=== PATIENT | male | born 1955 | race Caucasian/White ===

== ENCOUNTER → 2016-10-20 07:17 | Outpatient (CLI) | payer MEDICARE ==
[~2016-10-20] VITALS: Ht 175.3 cm; Wt 81.8 kg
--- NOTE | ~2016-10-20 | HEMODYNAMI ---
PATIENT:GORGE MA JR MEDICAL RECORD: [id number] : 51 LOCATION:[facility] ADMISSION DATE: 10/20/16 Generatedon:10/20/20169:44 Patient name: GORGE MA Patient #: [id number] SSN: DO B: 1955 Date of study: 10/20/2016 Page: Of Hemodynamic Procedure Report Patient Data Patient Demographics Procedure consent was obtained First Name: GORGE Gender: Male Last Name: FRANCESCA Suffix: Jr [place] Initial: Maggy : 1955 Patient #: [id number] Age: 61 year(s) Race: Additional ID: [id number] Contact details Address: [facility] [address] State: [facility] Zip code: [address] Past Medical History Allergies Allergen Reaction Date Comments Reported Morphine 10/20/2016 Natural rubber 10/20/2016 and latex Chocolate 10/20/2016 Admission Admission Data Admission Date: 10/20/2016 Admission Time: 7:17 Height (in.): 69 BSA: 1.98 (m2) Height (cm.): 175.26 BMI: 26.58 (kg/m2) Weight (lbs.): 180 Weight (kg.): 81.65 Lab Results Lab Result Date: 10/20/2016 Lab Result Time: 0:00 Biochemistry Name Units Result Min Max Creatinine mg/dl 0.7 --(*---)-- 0.6 1.3 CBC Name Units Result Min Max Hemoglobin g/dl 15.5 --(-*--)-- 13.5 17.5 Procedure Procedure Types Cath Procedure Diagnostic Procedure C [facility] w/Coronaries PCI Procedure Coronary Stent Initial Miscellaneous Procedures Moderate Sedation up to 30 minutes Procedure Description Procedure Date Procedure Date: 10/20/2016 Procedure Start Time: 9:20 Procedure End Time: 9:43 Procedure Staff Name Function Luther Barrow MD Performing Physician Sofya Melendez RT Scrub Kelsie Ma RN Nurse Nura Ndiaye RT Monitor Procedure Data Cath Procedure Fluoroscopy Diagnostic fluoroscopy Total fluoroscopy Time: 4.4 time: 4.4 min min Diagnostic fluoroscopy Total fluoroscopy dose: 660 dose: 660 mGy mGy Contrast Material Contrast Material Type Amount (ml) Isovue 300 128 Entry Location Entry Primary Successful Side Size Upsize Upsize Entry Closure Succes sful Closure Location (Fr) 1 (Fr) 2 (Fr) Remarks Device Remarks Femoral Right 5 Fr 6 Fr Exoseal artery Short Estimated blood loss: 10 ml Diagnostic catheters Device Type Used For End Catheter Placement Cordis 5Fr JL 4.0 Procedure Catheter (MP) Cordis 5Fr 3DRC Catheter Procedure (MP) Cordis 5Fr Pigtail Procedure Catheter (MP) Cordis 5Fr 3DRC Catheter Procedure (MP) Procedure Complications No complications Procedure Medications Medication Administration Route Dosage Fentanyl I.V. 50 mcg Versed I.V. 1 mg Versed I.V. 1 mg Fentanyl I.V. 50 mcg Versed I.V. 1 mg Fentanyl I.V. 50 mcg Oxygen NC 2 l/min Heparin Flush Bag added to field 2 bags (1000units/500ml NS) Lidocaine 2% added to field 20 Heparin Bolus I.V. 4000 units Integrilin (Bolus I.V. 7.3 ml 2mg/ml) Nitroglycerin IC/IA I.C. 150 mcg Plavix P.O. 600 mg Hemodynamics Rest BSA: 1.98 (m2) HGB: 15.5 (g/dl) O2 Consumption: Estimated: 228.01 (ml/min) O2 Co nsumption indexed: Estimated:115.16 (ml/min/m) Heart Rate: 65 (bpm) Pressure Samples Time Site Value (mmHg) Purpose Heart Use Rate(bpm) 9:23 AO 128/76(98) Snapshot 76 9:27 LV 132/14,21 Snapshot 81 9:27 AO 131/71(97) Pullback 81 9:27 LV 138/2,33 Pullback 81 9:31 AO 114/65(87) Snapshot 79 Gradients Valve Time Site 1 Site 2 Mean SEP/DFP Peak To Heart Use (mmHg) (sec/min) Peak Rate (mmHg) (bpm) Aortic 9:27 LV AO 12 25 7 81 138/2,33 131/71(97) Calculations Valve P-P Mean Valve Index Valve Source Name Gradient Area Flow (cm2) Aortic 7 12 7 12 Snapshots Pre Cath Intra NCS Post Cath Vital Signs Time Heart Resp SPO2 etCO2 [id number] NIBP (mmHg) Rhythm Pain Status Sed ation Rate (ipm) (%) (mmHg) (mmHg) Level (bpm) 8:48:28 68 14 100 0 0 158/75(85) NSR 4 (11) , 10( A) Distressing 8:52:46 67 20 100 0 0 138/93(105) NSR 4 (11) , 10( A) Distressing 8:56:58 69 15 100 0 0 142/89(129) NSR 2 (11) , 10( A) Uncomfortable 9:01:14 75 17 100 0 0 142/84(120) NSR 0 (11) , No 10( A) pain 9:05:30 65 19 99 0 0 140/83(117) NSR 0 (11) , No 10( A) pain 9:09:44 65 17 98 0 0 136/88(120) NSR 0 (11) , No 10( A) pain 9:13:56 74 16 98 0 0 140/86(105) NSR 0 (11) , No 10( A) pain 9:18:14 71 18 95 0 0 122/77(90) NSR 0 (11) , No 9(A ) pain 9:22:24 76 18 96 0 0 125/80(92) NSR 0 (11) , No 9(A ) pain 9:26:36 78 16 96 0 0 114/73(87) NSR 0 (11) , No 9(A ) pain 9:30:43 79 16 94 0 0 111/74(91) NSR 0 (11) , No 9(A ) pain 9:34:49 82 16 98 0 0 120/75(92) NSR 0 (11) , No 9(A ) pain 9:38:55 83 16 96 0 0 126/84(103) NSR 0 (11) , No 10( A) pain 9:40:44 82 16 97 0 0 123/81(96) NSR 0 (11) , No 10( A) pain Medications Time Medication Route Dose Verified Delivered Reason Notes Effectiveness by by 8:51:26 Oxygen NC 2 Luther Iglesias Per physician l/min [facility] Ma RN, MD 8:52:01 Lidocaine 2% added 20ml Luther Luther used for to vial Ismay Ismay procedure field MD GARCIA 8:52:45 Heparin Flush added 2 Luther Luther used for Bag to bags [facility] procedure (1000units/500ml field MD GARCIA NS) 8:54:25 Fentanyl I.V. 50 Luther Kelsie for back pain mcg [facility]se[facility] Ma RN, MD 9:12:25 Versed I.V. 1 mg Luther Kelsie for sedation [facility] Ma RN, MD 9:14:31 Fentanyl I.V. 50 Luther Kelsie for sedation mcg [facility] Ma RN, MD 9:14:33 Versed I.V. 1 mg Luther Kelsie for sedation [facility] Ma RN, MD 9:16:34 Versed I.V. 1 mg Luther Kelsie for sedation [facility] Ma RN, MD 9:16:39 Fentanyl I.V. 50 Luther Kelsie for sedation mcg [facility] Ma RN, MD 9:29:49 Heparin Bolus I.V. 4000 Luther Kelsie for dose units [facility] Ma RN anticoagulation verified MD with dr denis 9:33:10 Integrilin I.V. 7.3 Luther Kelsie for wasted (Bolus 2mg/ml) ml [facility] Ma RN antiplatelet 2.7mL MD therapy 9:36:42 Nitroglycerin I.C. 150 Luther Luther for IC/IA mcg Pushpa [facility] roy MD, MD 9:39:45 Plavix P.O. 600 Luther Kelsie for mg [facility] Ma RN antiplatelet therapy Procedure Log Time Note 8:24:40 Lab Result : Creatinine 0.7 mg/dl 8:24:40 Lab Result : Hemoglobin 15.5 g/dl 8:25:04 Time tracking: Regular hours 8:25:08 Plan of Care:Hemodynamics will remain stable., Cardiac rhythm will remain stable., Comfort level will be maintained., Respiratory function will remain adequate., Patient/ family verbilizes understanding of procedure., Procedure tolerated without complication., Recovers from procedure without complications.. 8:30:22 Nura ESTEBAN(R) sent for patient. Start room use. 8:47:15 Vital chart was started 8:50:47 Patient received from Pre/Post Procedure Room to CCL 1 Alert and oriented. Tansferred to table in Supine position. 8:50:49 Warm blankets applied, and teddy hugger turned on for patient comfort. 8:50:50 Correct patient and procedure confirmed by team. 8:50:51 Signed procedure consent form obtained from patient. 8:50:52 ECG and BP/O2 sat monitors applied to patient. 8:50:54 Full Disclosure recording started 8:51:01 Baseline sample Acquired. 8:51:26 Oxygen 2 l/min NC was administered by Kelsie Ma RN; Per physician; 8:52:01 Lidocaine 2% 20ml vial added to field was administered by Luther Barrow MD; used for procedure; 8:52:45 Heparin Flush Bag (1000units/500ml NS) 2 bags added to field was administered by Luther Barrow MD; used for procedure; 8:52:59 Baseline sample Acquired. 8:54:25 Fentanyl 50 mcg I.V. was administered by Kelsie Ma RN; for back pain; 8:55:40 Rhythm: sinus rhythm 8:56:10 H&P Date Dictated: 10/20/2016 New H&P dictated by physician.. 8:56:11 Pre-procedure instructions explained to patient. 8:56:12 Pre-op teaching completed and patient verbalized understanding. 8:56:15 Family in patients room. 8:56:17 Patient NPO since Midnight. 8:56:29 Is the patient allergic to Iodine/contrast media? No. 8:56:33 Is patient on blood thinner?No 8:56:36 Patient diabetic? No. 8:56:39 Previous problem with sedation/anesthesia? No ? 8:56:40 Snore? No 8:56:42 Sleep apnea? No 8:56:43 Deviated septum? No 8:56:44 Opens mouth fully? Yes 8:56:44 Sticks out tongue? Yes 8:56:46 Airway obstruction? No ? 8:56:49 Dentures? No ? 8:56:53 Pre procedure: right dorsailis pedis pulse 1+ Palpable, but thready & weak; easily obliterated 8:56:56 Modified Johnathan's test Ulnar > 7 seconds. 8:57:05 FAILED JOHNATHAN'S 8:57:09 Patient pain scale 0/10 ?. 8:57:14 IV patent on arrival in left forearm with 0.9% NaCl at [facility]. 8:57:17 Lab results completed and on chart. 8:57:21 Right groin area was prepped with chlora-prep and draped in sterile fashion 8:57:23 Alarms reviewed by R. N. 8:57:23 Sharps counted by scrub and verified by R.N. 8:58:38 Use device set Femoral Dx 9:01:17 Tegaderm 4 x 4 opened to sterile field. 9:01:18 Acist Hand Control opened to sterile field. 9:01:18 Acist Manifold opened to sterile field. 9:01:20 Acist Syringe opened to sterile field. 9:01:20 Bag Decanter opened to sterile field. 9:01:21 Medline Cath Pack opened to sterile field. 9:01:21 Terumo 5Fr Hemphill Sheath opened to sterile field. 9:01:22 St [place] 260cm J .035 wire opened to sterile field. 9:01:23 Diagnostic Infinity 5Fr Multipack catheter opened to sterile field. 9:02:00 Physician paged 9:03:52 Zero performed for pressure channel P1 9:06:21 Patient Height : 69 cm 9:06:22 Patient Weight : 180 kg 9:09:17 Patient allergic to Morphine 9:09:22 Patient allergic to Natural rubber and latex 9:09:27 Patient allergic to Chocolate 9:11:40 --------ALL STOP TIME OUT------ 9:11:41 Final Timeout: patient, procedure, and site verified with staff and physician. All members of the team are in agreement. 9:11:46 Right groin site verified by team. 9:11:49 Physical assessment completed. ASA score P 2 - A patient with mild systemic disease as per Luther Barrow MD. 9:11:52 Sedation plan: IV Moderate Sedation Versed, Fentanyl 9:12:25 Versed 1 mg I.V. was administered by Kelsie Ma RN; for sedation; 9:14:31 Fentanyl 50 mcg I.V. was administered by Kelsie Ma RN; for sedation; 9:14:33 Versed 1 mg I.V. was administered by Kelsie Ma RN; for sedation; 9:16:34 Versed 1 mg I.V. was administered by Kelsie Ma RN; for sedation; 9:16:39 Fentanyl 50 mcg I.V. was administered by Kelsie Ma RN; for sedation; 9::41 Procedure started. 9:20:45 Local anesthetic to right femoral artery with Lidocaine 2% by Luther Barrow MD.INITIAL ACCESS ONLY 9:21:31 A 5 Fr sheath was inserted into the Right Femoral artery 9:22:07 A Cordis 5Fr JL 4.0 Catheter (MP) was advanced over the wire and used for Procedure. 9:23:06 LCA angiography performed. 9:23:46 Catheter removed. 9:23:51 A Cordis 5Fr 3DRC Catheter (MP) was advanced over the wire and used for Procedure. 9:25:08 RCA angiography performed. 9:25:38 Catheter removed. 9:26:01 A Cordis 5Fr Pigtail Catheter (MP) was advanced over the wire and used for Procedure. 9:27:35 Terumo 6Fr Hemphill Sheath opened to sterile field. 9:27:36 [employer] [place] 300cm 0.014 guide wire opened to sterile field. 9:27:36 Info Assembly BasixCompak Inflation Kit opened to sterile field. 9:27:37 Cordis 6FR XBLAD 3.5 guide catheter opened to sterile field. 9:27:39 LV angiography performed. 9:27:41 LV gram done using GR 9:27:47 EF : 55 % 9:27:50 LV hemodynamics recorded. 9:27:55 Injector settings: Ml/sec: 10, Volume: 20, 9:27:57 Catheter removed. 9:28:36 Sheath upsized to a 6 Fr Short. 9:28:41 ACC PCI Site: mLAD has 80% stenosis. 9:28:43 ACC Pre-intervention MONIQUE Flow is 3. 9:29:49 Heparin Bolus 4000 units I.V. was administered by Kelsie Ma RN; for anticoagulation; dose verified with dr denis 9:29:56 6 Fr XBLAD 3.5 guide catheter was inserted over the wire 9:31:12 [place] wire advanced. 9:32:50 Wire advanced across lesion. 9:33:10 Integrilin (Bolus 2mg/ml) 7.3 ml I.V. was administered by Kelsie Ma RN; for antiplatelet therapy; wasted 2.7mL 9:33:49 Inflation Number: 1 A Medtronic Integrity 3.0 X 15 stent was prepped and advanced across the Mid LAD. The stent was deployed at 14 NATHANIEL for 0:45 (min:sec). 9:34:58 ACC Post-intervention MONIQUE Flow is 3. 9:35:01 Stent catheter was removed intact over wire. 9:35:01 Wire removed. 9:35:02 Guide catheter removed. 9:35:11 A Cordis 5Fr 3DRC Catheter (MP) was advanced over the wire and used for Procedure. 9:36:42 Nitroglycerin IC/IA 150 mcg I.C. was administered by Luther Barrow MD; for vasodilation; 9:37:29 Catheter removed. 9:37:42 Cordis 6Fr Exoseal opened to sterile field. 9:37:54 Sheath removed intact; hemostasis achieved with Exoseal to the Right Femoral artery. 9:37:58 Procedure ended.(Physican Out) 9:38:23 Fluoroscopy time 04.40 minutes. 9:38:28 Flurop Dose total: 660 9:38:28 Fluoroscopy dose: 660 mGy 9:38:33 Contrast amount:Isovue 300 128ml. 9:38:35 Sharps counted by scrub and verified by R.N. 9:38:37 Insertion/operative site no bleeding no hematoma. 9:39:05 Post-op/insertion site Right Femoral artery dressed using a 4 x 4 and Tegaderm. 9:39:07 Post Procedure Pulses reassessed and unchanged 9:39:09 Post-procedure physical assessment completed. ASA score P 2 - A patient with mild systemic disease as per Luther Barrow MD. 9:39:12 Post procedure rhythm: unchanged. 9:39:15 Estimated blood loss: 10 ml 9:39:17 Post procedure instruction explained to patient.Patient verbalizes understanding. 9:39:18 Patient needs reinforcement of post procedure teaching. 9:39:37 Procedure type changed to Cath procedure, Diagnostic procedure, LHC, LHC w/Coronaries, PCI procedure, Coronary Stent Initial, Miscellaneous Procedures, Moderate Sedation up to 30 minutes 9:39:41 Procedure Complication : No complications 9:39:45 Plavix 600 mg P.O. was administered by Kelsie Ma RN; for antiplatelet therapy; 9:40:05 Procedure and supply charges have been captured, reviewed, submitted and are correct. 9:42:56 Vital chart was stopped 9:42:57 See physician's report for complete and final results. 9:42:59 Report given to Pre/Post Procedure Room. 9:43:18 Patient transfered to PCU with Stretcher. 9:43:22 Procedure ended. 9:43:22 Full Disclosure recording stopped 9:43:33 End room use (Document Last) Intervention Summary Intervention Notes Time ActionType Lesion and Equipment Action# Pressure Duration Attributes Used 9:33:49 Place stent Mid LAD Medtronic 1 14 00:45 Integrity 3.0 X 15 stent Device Usage Item Name Manufacture Quantity Catalog Hospital Part Current Minimal Lot# / Number Charge Number Stock Stock Serial# Code Tegaderm 4 3M 1 1626W 212534 179075 989341 5 x 4 Acist Hand Acist 1 64369 341531 203183 016014 5 Control Medical Systems ReGen Biologics Acist Acist 1 24744 916906 414586 736681 5 Manifold Medical Systems Inc Acist Acist 1 51070 074787 993992 768468 20 Syringe Medical Systems Inc Bag Microtek 1 2002S 752513 75093 275215 5 Dec[employer]zun [employer] Medical Inc. Medline Cardinal 1 [id number] 256008 79981 426752 5 Cath Pack Health Terumo 5Fr Terumo 1 [id number] 726033 912630 257746 [address] [place] 1 542180 148031 808551 994936 30 260cm J .035 wire Diagnostic Cardinal 1 [id number] 184026 35009 815721 30 Infinity Health 5Fr Multipack catheter Cordis 5Fr Cardinal 1 874990 5 JL 4.0 Health Catheter (MP) Cordis 5Fr Cardinal 1 903337 5 3DRC Health Catheter (MP) Cordis 5Fr Cardinal 1 827401 5 Pigtail Health Catheter (MP) Terumo 6Fr Terumo 1 [id number] 676006 899665 082415 40 Hemphill Sheath Schreiber Schreiber 1 [id number] 025146 265413 314997 1 [place] Vascular 300cm 0.014 guide wire Merit Merit 1 [id number] 965358 218845 520928 15 [employer] Medical Inflation Kit Cordis 6FR Cardinal 1 [id number] 277535 222647 846438 10 XBLAD 3.5 Health guide catheter Medtronic Medtronic 1 [id number] 348286 093104 8 [id number] Integrity 3.0 X 15 stent Cordis 6Fr Cardinal 1 [id number] 264968 556546 424039 10 OR Productivity Signature Audit [place] Stage Time Signature Unsigned Intra-Procedure 10/20/2016 Nura Ndiaye 9:44:00 AM RT(R) Signatures Monitor : Nura Ndiaye RT Signature : Date : Time : [address] [id number]
[~2016-10-20 07:17] MED LIST: ALTACE10 MG PO; AMBIEN10 MG PO; BAYER CHEWABLE81 MG PO; HYDROCHLOROTH12.5 M1 PO; HYDROCODONE-APA1 TAB PO; LEVOTHYROXINE50 MCG PO; LODINE400 MG PO; PLAVIX75 MG PO; TENORMIN50 MG PO; ULTRAM50 MG PO
[2016-10-20 07:46] LABS: BASOPHILS 0.5 % (0-2); EOSINOPHILS 1.8 % (0-7); HEMATOCRIT 41.1 % (42.0-54.0); HEMOGLOBIN 15.5 g/dL (13.5-17.5); IMMATURE GRANULOCYTES 0.3 % (0-5); LYMPHOCYTES 33.3 % (15-50); MCH 33.3 pg (26.0-34.0); MCHC 37.7 g/dL (31.0-37.0); MCV 88.4 fL (80.0-100.0); MEAN PLATELET VOLUME 9.4 fL (7.4-10.4); MONOCYTES 11.3 % (2-11); NEUTROPHILS 52.8 % (40-80); PLATELET COUNT 206 10x3/uL (130-400); RBC 4.65 10x6/uL (4.20-6.10); RDW 11.9 % (11.5-14.5)
[2016-10-20 07:55] VITALS: BP 155/84; Ht 175.3 cm; Wt 81.8 kg
[2016-10-20 08:12] LABS: CALC OSMOLALITY 249 mosm/kg (275-300); CALCIUM 8.6 mg/dL (8.5-10.1); CARBON DIOXIDE 25.1 mmol/L (21.0-32.0); CHLORIDE - SERUM 89 mmol/L (98-107); CREATININE - SERUM 0.7 mg/dL (0.6-1.3); GLUCOSE 91 mg/dL (74-106); POTASSIUM - SERUM 3.4 mmol/L (3.5-5.1); SODIUM 125 mmol/L (136-145); UREA NITROGEN 6 mg/dL (7-18); eGFR NON AFRICAN AMERICAN > 90 mL/min (90-120)
--- NOTE | 2016-10-20 09:50 | NUR ---
RECIEVED BACK TO ROOM VIA STRETCHER FROM RESPIRATORY SUPERVISOR WITH 6 FR EXOSEAL R/GROIN CDI NO BLEEDING NO HEMATOMA NOTED. VSS WITH CHEST PAIN DENIED. INSTRUCTED PATIENT TO KEEP HEAD FLAT ON PILLOW WITH RLE STRAIGHT. 1000 PATIENT REQUEST URINAL NEEDS PROVIDED. PATIENT REQUEST JUICE TO DRINK ON ARRIVAL WITH JUICE FOUND PATIENT SITTING UP IN BED USING URINAL. INSTRUCTED PATIENT TO LAY DOWN WITH DRESSING TO R/GROIN INTACT SMALL AMOUNT OF BLOOD NOTED TO DRESSING NOTIFIED RESPIRATORY SUPERVISOR WITH AAMIR TO CHECK GROIN NO SWELLING OR HEMATOMA AT THIS TIME WILL MONITOR
--- NOTE | 2016-10-20 10:45 | NUR ---
R/GROIN CONTINUES TO BLEED WITH DRESSING SATURATED. FEMSTOP APPLIED WITH PULSES MARKED
--- NOTE | 2016-10-20 11:15 | NUR ---
1115 VSS WITH CHEST PAIN DENIED FEMSTOP REMAINS TO R/GROIN WITH PULSES MARKED FAMILY AT SIDE 1145 PATIENT VOIDS 600 CC TO URINAL. VSS WITH FEMSTOP IN PLACE
--- NOTE | 2016-10-20 12:25 | NUR ---
1215 PT HAS VOIDED 500 CC CLEAR YELLOW URINE USING URINAL. FEMSTOP IN PLACE, NO BLEEDING OR HEMATOMA NOTED, PT DENIES ANY C/O AT THIS TIME. FAMILY AT BEDSIDE.
--- NOTE | 2016-10-20 12:43 | NUR ---
RESTING QUIELTY WITH EYES CLOSED VSS WITH NO DISTRESS NOTED. FEMSTOP REMAINS IN PLACE WITH PULSES PRESENT
--- NOTE | 2016-10-20 13:00 | NUR ---
PRESSURE RELEASED SLOWLY FROM FEMSTOP WITH NO BLEEDING NO HEMATOMA NOTED. WILL MONITOR VSS
--- NOTE | 2016-10-20 13:13 | NUR ---
R/GROIN REMAINS CDI NO BLEEDING NO HEMATOMA. FEMSTOP REMAINS IN PLACE WITH NO PRESSURE TO SITE. CHEST PAIN DENIED WITH VSS WILL MONITOR
--- NOTE | 2016-10-20 13:55 | NUR ---
PIV REMOVED WITH DRESSING APPLIED. R/GROIN CDI NO BLEEDING NO HEMATOMA NOTED. PATIENT UP TO GET DRESSED FOR DISCHARGE HOME WITH
--- NOTE | 2016-10-20 14:22 | NUR ---
VERBAL AND WRITTEN DISCHARGE GONE OVER WITH PATIENT AND BOTH VERBALIZED UNDERSTANDING. R/GROIN REMAINS CDI WITH CHEST PAIN DENID. LEFT VIA WC TO PARKING FOR DISCHARGE HOME
--- NOTE | 2016-10-21 14:39 | HP ---
PATIENT: GORGE MA JR MEDICAL RECORD: [id number] ACCOUNT: [id number] LOCATION:[facility] : 51 ADMISSION DATE: 10/20/16 HISTORY AND PHYSICAL EXAMINATION HISTORY OF PRESENT ILLNESS: A 61-year-old gentleman, no known history of coronary artery disease. He has a history of hypertension, hypothyroidism on replacement, seen in the office for progressive angina, had positive pharmacological protocol Cardiolite stress test. He is noted to have reversible ischemia. He is being brought to the lab for diagnostic and neurology intervention based on above. PAST MEDICAL HISTORY: Includes: 1. History of rheumatoid arthritis. 2. Hyperlipidemia. 3. Hypertension. 4. Progressive angina. ALLERGIES: CHOCOLATE AND MORPHINE. MEDICATIONS: Include, atenolol 50 every day, HCTZ 12.5 every day, [place] 10/325 two as needed, Synthroid 50 every day, prednisone 5 every day. PHYSICAL EXAMINATION: GENERAL: Pleasant gentleman in no acute distress. Mild changes of RA in the upper extremities. HEENT: Normocephalic, atraumatic. NECK: No bruits. HEART: Regular. LUNGS: Engle clear. ABDOMEN: Soft, nontender. EXTREMITIES: Pulses 2+. IMPRESSION: Progressive angina with positive noninvasive study. PLAN: Diagnostic angiography, intervention based on the above. TRANSINT:[id number] Voice Confirmation ID: [id number] DOCUMENT ID: [id number] DIEGO EDGAR MD at 1439 CC: [id number] DICTATION DATE: 10/20/16915 ALUMINUM SIDING MECHANIC: 10/20/16 0937 [facility] CLI 10/20/16 [place] [id number]
--- NOTE | 2016-10-21 14:39 | OP ---
PATIENT NAME: GORGE MA JR MEDICAL RECORD: [id number] :51 LOCATION:D.[facility] ADMISSION DATE: SURGEON: DIEGO EDGAR MD DATE OF OPERATION: 10/20/2016 PROCEDURE: Left heart catheterization, selective coronary angiography, right femoral approach. CATHETERS: A 5-Grenadian sheath, 5/4 right Sweta, 5/4 pig. The procedure was well tolerated. The patient returned to tellez, sheath removed. ExoSeal device was placed. FINDINGS: Left ventriculography in 30-degree GR view: Normal wall motion, normal systolic function. CORONARY ANATOMY: LEFT MAIN: Left main is free of disease. LAD: Has a mid artery stenosis about 80%. CIRCUMFLEX: Circumflex is free of disease. RIGHT CORONARY ARTERY: Dominant artery, gives rise to PDA, free of disease. IMPRESSION: Single-vessel disease involving left anterior descending. PLAN: Intervention momentarily. DESCRIPTION: A 5-Grenadian sheath was changed for a 6-Grenadian sheath. An LAD 3.5 catheter provided good guide catheter support followed by a 300 cm [place] XT wire was placed across the site occluded LAD down a portion of this vessel. Stent deployed was a 3.0 x 15 mm Integrity nondrug-eluting stent up to 14 atmospheres for 45 seconds. Final injection shows excellent resolution of 80% stenosis, no significant residual. MONIQUE flow was 3 throughout the procedure. Integrilin was used in the case. Plavix was loaded in the lab. Sheath closed with ExoSeal device. TRANSINT:[id number] Voice Confirmation ID: [id number] DOCUMENT ID: [id number] DIEGO EDGAR MD at 1439 CC: [id number] DICTATION DATE: 10/20/16 0949 INTERNAL GRINDING MACHINE OPERATOR: 10/20/16 1231 [facility] CLI 10/20/16 [facility] [address] [place] [id number]
== END | disposition home or self-care (01) ==
LOC: D.CATH 07:17
PROVIDERS: Internal Medicine Cardiovascular Disease
DX: I25.119 Atherosclerotic heart disease of native coronary artery with unspecified angina pectoris (principal)

== ENCOUNTER → 2020-02-19 09:59 | Outpatient (CLI) | payer MEDICARE ==
[2016-10-20 07:55] VITALS: BMI 26.6
--- NOTE | ~2020-02-19 | EC ---
PATIENT:GORGE MA JR DATE OF SERVICE: 02/19/20 SEX: M MEDICAL RECORD: [id number] DATE OF : 51 LOCATION:D[facility] AGE OF PATIENT: 64 ADMISSION DATE: 02/19/20 REFERRING PHYSICIAN: INTERPRETING PHYSICIAN: DIEGO EDGAR MD ECHOCARDIOGRAM REPORT ECHO CHARGES 4 ECHO COMPLETE Date: 02/19/20 CLINICAL DIAGNOSIS: CAD/LVH/ ASSESS LVH/EF AND VALVES ECHOCARDIOGRAPHIC MEASUREMENTS (adult normal given) AC root (d.<3.7cm) 4.1 cm LV Septum d (<1.2 cm> 1.4 cm Valve Excursion 1.5 cm LV Septum (systole) 1.5 cm Left Atria (s.<4.0cm> 3.5 cm LVPW d(<1.2cm) 1.2 cm RV (d.<2.3cm) 3.8 cm LVPW (sytole) 1.5 cm LV diastole(<5.6CM) 4.1 cm MV E-F(>70mm/sec) cm LV systole 3.0 cm LVOT Diameter 1.9 cm MV exc.(>10mm) 1.6 cm Est.ejection fraction (50-75%) % DOPPLER: LVIT cm/sec A 96.0 cm/sec E 65.0 cm/sec LA cm/sec RVSP 16 mmHg LVOT 79 cm/sec AOP1/2T m/s Asc. Ao 93 cm/sec RVOT 51 cm/sec RA cm/sec PA 82 cm/sec AV Gradient Peak 3.47 mmHg AV Mean 1.98 mmHg AV Area 3.0 cm MV Gradient Peak 3.62 mmHg MV Mean 1.24 mmHg MV Area cm COMMENTS: Division Director: 2 ARACELI BERNABE Systems Design Engineer: 3 Dr. Barrow TAPE# pacs Pericardial Effusion N DATE OF SERVICE: Adequate 2D, color flow imaging, spectral Doppler, and M-Mode. LVH is present. LV internal dimensions are normal. Wall motion is normal. EF is greater than or equal to 55%. Aortic valve is tricuspid. No evidence of stenosis by Doppler interrogation. There is trivial AI by color flow imaging. Left atrium is normal 3.5 cm. Mitral valve shows no prolapse. Trivial MR. Right-sided chamber grossly normal. Trace TR. TRANSINT:[id number] Voice Confirmation ID: [id number] DOCUMENT ID: [id number] ECHOCARDIOGRAM REPORT [id number] GORGE MA JR, GREGORY A MD CC: [id number] DICTATION DATE: 02/19/20 153 MANAGER SOCIAL WORK: 02/20/20 0025 [facility] CLI 02/19/20 [place] [id number]
== END | disposition home or self-care (01) ==
LOC: D.HCCECHO 09:59
PROVIDERS: ATTEND Internal Medicine Interventional Cardiology
DX: I25.10 Atherosclerotic heart disease of native coronary artery without angina pectoris (principal)